=== PATIENT | female | born 1940 | race Caucasian/White ===

== ENCOUNTER 2016-09-19 11:49 | Inpatient (IN) ==
[2016-09-19] MEDS ORDERED: Ipratropium/Albuterol Neb 3 ML ONE (11:57)
[2016-09-19] MEDS ORDERED: 0.9 % Sodium Chloride 1,000 ML IVC ONE (12:13)
[2016-09-19] MEDS ORDERED: Levalbuterol Neb 1.25 MG/3 ML IH ONE (12:14)
--- NOTE | 2016-09-19 12:18 | Emergency Department Note ---
Disposition Clinical Impression: CAP (community acquired pneumonia) Disposition: Admitted As Inpatient Condition: Fair Referrals: Christi Karimi MD [Primary Care Provider] - SOB HPI - General Stated Complaint: difficulty breathing Source: patient Mode of arrival: ambulatory Limitations: no limitations Nursing Notes Reviewed: Yes Vital Signs Reviewed: Yes - History of Present Illness 75-year-old female presents to emergency department for evaluation of shortness of breath. Patient is a known history of COPD requiring constant oxygen at 1.5 L. Patient states that she just got over a cold and seemed to be doing well until this morning when she started having cold-like symptoms again of runny nose and coughing. Patient states she coughs but does not get anything up. She states chills but no fever. She denies any chest pain. There has been no associated vomiting. - Related Data Home Medications Medication Instructions Recorded Confirmed Albuterol Sulfate 2.5 mg IH Q4H 09/19/16 09/19/16 Budesonide/Formoterol 80/4.5 2 puff IH BID 09/19/16 09/19/16 [Symbicort 80/4.5] Diltiazem [Cardizem] 30 mg PO BID 09/19/16 09/19/16 Ferrous Sulfate [Iron] 325 mg PO BID 09/19/16 09/19/16 Fluticasone/Salmeterol [Advair 1 each IH BID 09/19/16 09/19/16 250-50 Diskus] Metformin [Glucophage] 1,000 mg PO BIDWM 09/19/16 09/19/16 Omeprazole 20 mg PO DAILY 09/19/16 09/19/16 Allergies Allergy/AdvReac Type Severity Reaction Status Date / Time No Known Allergies Allergy Verified 09/30/15 09:14 Review of Systems: Constitutional: [Negative for fever and chills.] HENT: [Negative for congestion.] Eyes: [Negative for discharge.] Respiratory: See history of present illness Cardiovascular: [Negative for chest pain.] Gastrointestinal: [Negative for nausea, vomiting, abdominal pain and diarrhea.] Endocrine: [Negative for excessive thirst,urination] Genitourinary: [Negative for dysuria and frequency.] Musculoskeletal: [Negative for myalgias and arthralgias.] Skin: [Negative for rash.] Neurological: [Negative for dizziness, localized weakness and headaches.] Psychiatric/Behavioral: [Negative for nervous/anxious.] All other systems reviewed and are negative. Past Medical History - Past Medical History Attestation: Yes The following information was validated with the patient. 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 . The patient appears nontoxic, and appears chronically ill. HENT: Head: Normocephalic and atraumatic. Right Ear: External ear normal. Left Ear: External ear normal. Nose: Nose normal. Mouth/Throat: Oropharynx is clear and mucous membranes show [good hydration.] No obvious drainage is seen Eyes: Conjunctivae and EOM are normal. Pupils are equal, round, and reactive to light. Right eye exhibits [no] discharge. Left eye exhibits [no] discharge. Neck: Trachea is midline, normal range of motion and [phonation normal]. Neck supple. Cardiovascular: [Regular rhythm], S1 normal, S2 normal, normal heart sounds and intact distal pulses. Exam reveals no gallop and no friction rub. No murmur heard. Pulmonary/Chest: Effort increased No stridor. Mild tachypnea. [No] respiratory distress. There are decreased breath sounds. There is very faint wheezes heard but no rhonchi or rales Abdominal: Soft. [Bowel sounds are normal]. There exhibits [no] distension and [no] mass. There is no hepatosplenomegaly. There is [no tenderness], [no] CVA tenderness. There is [no rigidity, no rebound, no guarding]. Musculoskeletal: Normal range of motion of uninvolved extremities. There exhibits [no edema]. [ ] Neurological: Patient is alert. Patient displays no atrophy and no tremor. No cranial nerve deficit and exhibits normal muscle tone. Coordination normal. Skin: Skin is warm and dry. No rash noted. No erythema. Psychiatric: Patient has a normal mood,affect, behavior, judgment, and thought content. Course Course Narrative: Patient was discussed with Dr. Karimi her primary care physician who sent the patient for admission. I wrote initial admitting orders for her convenience. She will assume further care upon the patient's arrival to the floor. - Reevaluation(s) Reevaluation #1: She was asked about her current CODE STATUS. She states that she would like to have everything done until the point it appears that she would have to go on life support. Vital Signs Temperature 100.3 F H 09/19/16 11:50 Pulse Rate 135 09/19/16 11:50 Respiratory Rate 24 09/19/16 11:50 Blood Pressure 113/57 09/19/16 11:50 O2 Sat by Pulse Oximetry 78 L 09/19/16 11:50 Temperature 100.3 F H 09/19/16 11:50 Pulse Rate 135 09/19/16 11:50 Respiratory Rate 24 09/19/16 11:50 Blood Pressure 113/57 09/19/16 11:50 O2 Sat by Pulse Oximetry 92 L 09/19/16 11:50 Oxygen Delivery Oxygen Delivery Room Air Shortness of Breath/Dyspnea - Lab Data Lab results reviewed: Yes I reviewed the patient's lab results. Result diagrams: 09/19/16 12:30 09/19/16 12:30 Lab Results 09/19/16 09/19/16 09/19/16 Range/Units 12:30 12:30 12:30 WBC 18.0 H (4.3-11.1) K/mcL RBC 3.68 L (3.82-4.97) M/mcL Hgb 10.6 L (11.5-15.4) g/dL Hct 34.0 L (35.3-44.9) % MCV 92.4 (83.0-100.0) fL MCH 28.8 (28.0-33.3) pg MCHC 31.2 L (31.6-35.5) g/dL RDW 13.2 (11.5-14.5) % Plt Count 353 (140-400) K/mcL MPV 10.1 (9.4-12.4) fL Immature Gran % 0.5 (0-4) % Seg Neutrophils % 90.2 % Lymphocytes % 2.8 % Monocytes % 6.4 % Eosinophils % 0.0 % Basophils % 0.1 % Neutrophils # 16.2 H (1.6-8.9) K/mcL Lymphocytes # 0.5 L (0.6-4.6) K/mcL Monocytes # 1.2 (0.0-1.3) K/mcL Eosinophils # 0.0 (0.0-0.6) K/mcL Basophils # 0.0 (0.0-0.2) K/mcL ABG pH (7.32-7.45) pH Units ABG pCO2 (35-45) mmHg ABG pO2 (85-104) mmHg ABG HCO3 (21-27) mEQ/L ABG Total CO2 (20-26) mEq/L ABG O2 Saturation (95-98) % ABG Base Excess (-2.0 to 3.0) mEq/L VBG Lactic Acid (0.5-2.2) mmol/L Inspired O2 % Sodium 137 (136-145) mEq/L Potassium 5.3 H (3.5-4.5) mEq/L Chloride 101 (98-109) mEq/L Carbon Dioxide 21 (19-29) mEq/L BUN 17 (7-20) mg/dL Creatinine 0.92 (0.57-1.11) mg/dL Est GFR ( Amer) > 60 (> 60) Est GFR (Non-Af Amer) 60 (> 60) BUN/Creatinine Ratio 18 (6-26) Glucose 124 H (70-99) mg/dL Calculated Osmolality 287 (280-300) Calcium 9.3 (8.6-10.8) mg/dL Total Bilirubin 0.3 (0.2-1.2) mg/dL Direct Bilirubin 0.1 (0.0-0.5) mg/dL Indirect Bilirubin 0.2 (0.0-1.2) mg/dL AST 18 (5-34) Units/L ALT 11 (0-55) Units/L Alkaline Phosphatase 84 (38-126) Units/L Troponin I (0-0.03) ng/mL B-Natriuretic Peptide 49 (0-100) pg/mL Serum Total Protein 7.5 (6.0-8.3) g/dL Albumin 3.7 (3.5-5.0) g/dL Globulin 3.8 H (2.4-3.5) g/dL Albumin/Globulin Ratio 1.0 L (1.1-2.2) 09/19/16 09/19/16 09/19/16 Range/Units 12:41 13:25 15:20 WBC (4.3-11.1) K/mcL RBC (3.82-4.97) M/mcL Hgb (11.5-15.4) g/dL Hct (35.3-44.9) % MCV (83.0-100.0) fL MCH (28.0-33.3) pg MCHC (31.6-35.5) g/dL RDW (11.5-14.5) % Plt Count (140-400) K/mcL MPV (9.4-12.4) fL Immature Gran % (0-4) % Seg Neutrophils % % Lymphocytes % % Monocytes % % Eosinophils % % Basophils % % Neutrophils # (1.6-8.9) K/mcL Lymphocytes # (0.6-4.6) K/mcL Monocytes # (0.0-1.3) K/mcL Eosinophils # (0.0-0.6) K/mcL Basophils # (0.0-0.2) K/mcL ABG pH 7.41 (7.32-7.45) pH Units ABG pCO2 33 L (35-45) mmHg ABG pO2 99 (85-104) mmHg ABG HCO3 21 (21-27) mEQ/L ABG Total CO2 23.0 (20-26) mEq/L ABG O2 Saturation 98 (95-98) % ABG Base Excess -3.0 L (-2.0 to 3.0) mEq/L VBG Lactic Acid 3.0 H (0.5-2.2) mmol/L Inspired O2 2.5 % Sodium (136-145) mEq/L Potassium (3.5-4.5) mEq/L Chloride (98-109) mEq/L Carbon Dioxide (19-29) mEq/L BUN (7-20) mg/dL Creatinine (0.57-1.11) mg/dL Est GFR ( Amer) (> 60) Est GFR (Non-Af Amer) (> 60) BUN/Creatinine Ratio (6-26) Glucose (70-99) mg/dL Calculated Osmolality (280-300) Calcium (8.6-10.8) mg/dL Total Bilirubin (0.2-1.2) mg/dL Direct Bilirubin (0.0-0.5) mg/dL Indirect Bilirubin (0.0-1.2) mg/dL AST (5-34) Units/L ALT (0-55) Units/L Alkaline Phosphatase (38-126) Units/L Troponin I 0.00 (0-0.03) ng/mL B-Natriuretic Peptide (0-100) pg/mL Serum Total Protein (6.0-8.3) g/dL Albumin (3.5-5.0) g/dL Globulin (2.4-3.5) g/dL Albumin/Globulin Ratio (1.1-2.2) - Radiology Data Radiology results reviewed: Yes I reviewed the patient's radiology results. I have contemporaneously read the radiology report from the radiologist which has the following findings: Chest x-ray IMPRESSION: Stable chest. Streaky bibasilar infiltrates, similar to the previous study. It is unclear whether this represents a recurrent pneumonia or a chronic finding. Otherwise no acute disease - EKG Data EKG attestation: Yes I reviewed and interpreted this EKG. EKG shows normal: Reports: sinus rhythm, axis, intervals, QRS complexes, ST-T waves Rate: Reports: tachycardia Rhythm: Reports: PVC's
[2016-09-19] MEDS ORDERED: Ipratropium/Albuterol Neb 3 ML IH ONE (12:20)
[2016-09-19 12:41] LABS: Basophils % 0.1 %; Hemoglobin 10.6 g/dL (11.5-15.4); Immature Granulocytes % 0.5 % (0-4); Lymphocytes # 0.5 K/mcL (0.6-4.6); Lymphocytes % 2.8 %; Mean Corpuscular HGB Conc 31.2 g/dL (31.6-35.5); Mean Corpuscular Hemoglobin 28.8 pg (28.0-33.3); Mean Corpuscular Volume 92.4 fL (83.0-100.0); Mean Platelet Volume 10.1 fL (9.4-12.4); Monocytes # 1.2 K/mcL (0.0-1.3); Monocytes % 6.4 %; Neutrophils # 16.2 K/mcL (1.6-8.9); Platelet Count 353 K/mcL (140-400); Red Blood Count 3.68 M/mcL (3.82-4.97); Red Cell Distribution Width 13.2 % (11.5-14.5); Segmented Neutrophils % 90.2 %
[2016-09-19 13:06] LABS: Alanine Aminotransferase 11 Units/L (0-55); Albumin 3.7 g/dL (3.5-5.0); Alkaline Phosphatase 84 Units/L (38-126); Aspartate Amino Transferase 18 Units/L (5-34); BUN/Creatinine Ratio 18 (6-26); Bilirubin,Direct 0.1 mg/dL (0.0-0.5); Bilirubin,Indirect 0.2 mg/dL (0.0-1.2); Bilirubin,Total 0.3 mg/dL (0.2-1.2); Blood Urea Nitrogen 17 mg/dL (7-20); Calcium 9.3 mg/dL (8.6-10.8); Carbon Dioxide 21 mEq/L (19-29); Chloride 101 mEq/L (98-109); Globulin 3.8 g/dL (2.4-3.5); Glucose 124 mg/dL (70-99); Osmolality,Calculated 287 (280-300); Potassium 5.3 mEq/L (3.5-4.5); Sodium 137 mEq/L (136-145); Total Protein 7.5 g/dL (6.0-8.3); eGFR For African Americans > 60 (> 60); eGFR For Non-African Americans 60 (> 60)
[2016-09-19 13:46] LABS: ABG PH 7.41 pH Units (7.32-7.45)
[2016-09-19 13:47] LABS: ABG HCO3 21 mEQ/L (21-27); ABG Oxygen Saturation 98 % (95-98); ABG PCO2 33 mmHg (35-45); ABG PO2 99 mmHg (85-104)
[2016-09-19 13:48] LABS: Blood Gas FiO2 2.5 %
[2016-09-19] MEDS ORDERED: CefTRIAXone 1,000 MG in D5% in Water (Mini-Bag+) 100 ML IVPB ONE ×3 (14:36→16:30)
[2016-09-19] MEDS ORDERED: Naloxone 0.4 MG/ML INJ IVP PRN (16:06)
[2016-09-19] MEDS ORDERED: Ondansetron 4 MG/2 ML VIAL IVP PRN (16:06)
[2016-09-19] MEDS ORDERED: 0.9 % Sodium Chloride w KCl 20 MEQ/1,000 ML MLS IVC SCH (16:06)
[2016-09-19] MEDS ORDERED: Acetaminophen 325 MG TABLET PO PRN (16:06)
[2016-09-19] MEDS ORDERED: CefTRIAXone 2,000 MG VIAL ONE (16:13)
[2016-09-19] MEDS ORDERED: 0.9 % Sodium Chloride 1,000 ML IVC SCH ×3 (18:30→19:54)
[2016-09-19] MEDS: Azithromycin 500 MG in D5% in Water 250 ML IVPB SCH (18:34)
[2016-09-19] MEDS ORDERED: Enoxaparin Weight Dosing SQ SCH (19:00)
[2016-09-19] MEDS ORDERED: 0.9 % Sodium Chloride 500 ML IVC ONE ×2 (19:38→19:54)
[2016-09-19] MEDS: Albuterol 2.5 MG/3 ML NEBULIZER IH SCH ×2 (21:02)
[2016-09-19] MEDS: *HR* Metformin 500 MG TABLET PO SCH ×2 (21:02→21:11)
[2016-09-19] MEDS: Budesonide/Formoterol 80/4.5 MDI IH SCH ×2 (21:03)
[2016-09-19] MEDS: Fluorometholone OPTH 5 ML BOTTLE BOTH EYES SCH (21:03)
[2016-09-19] MEDS: Cyclosporine [Restasis] 1 EACH OP SCH (21:03)
[2016-09-19] MEDS: Ipratropium/Albuterol Neb 3 ML IH SCH (21:59)
[2016-09-20] MEDS: Albuterol 2.5 MG/3 ML NEBULIZER IH SCH ×5 (00:27→08:34)
[2016-09-20] MEDS ORDERED: 0.9 % Sodium Chloride 500 ML IVC ONE ×4 (00:55→16:04)
[2016-09-20] MEDS: 0.9 % Sodium Chloride 1,000 ML IVC SCH ×4 (01:11→23:25)
[2016-09-20] MEDS: Ipratropium/Albuterol Neb 3 ML IH SCH ×4 (04:28→20:52)
[2016-09-20 05:24] LABS: Hematocrit 26.6 % (35.3-44.9); Hemoglobin 8.1 g/dL (11.5-15.4); Immature Granulocytes % 0.7 % (0-4); Lymphocytes # 0.3 K/mcL (0.6-4.6); Lymphocytes % 2.4 %; Mean Corpuscular HGB Conc 30.5 g/dL (31.6-35.5); Mean Corpuscular Hemoglobin 28.9 pg (28.0-33.3); Mean Platelet Volume 10.1 fL (9.4-12.4); Monocytes # 0.1 K/mcL (0.0-1.3); Monocytes % 1.1 %; Platelet Count 236 K/mcL (140-400); Red Cell Distribution Width 13.4 % (11.5-14.5); Segmented Neutrophils % 95.8 %
[2016-09-20 05:33] LABS: BUN/Creatinine Ratio 26 (6-26); Blood Urea Nitrogen 23 mg/dL (7-20); Calcium 7.9 mg/dL (8.6-10.8); Carbon Dioxide 20 mEq/L (19-29); Chloride 108 mEq/L (98-109); Glucose 245 mg/dL (70-99); Osmolality,Calculated 294 (280-300); Potassium 5.1 mEq/L (3.5-4.5); Sodium 136 mEq/L (136-145); eGFR For African Americans > 60 (> 60); eGFR For Non-African Americans > 60 (> 60)
[2016-09-20] MEDS: *HR* Enoxaparin 30 MG/0.3 ML SYRINGE SQ SCH (05:39)
[2016-09-20] MEDS ORDERED: *HR* Enoxaparin 30 MG/0.3 ML SYRINGE SQ SCH ×2 (07:00)
[2016-09-20] MEDS: *HR* Metformin 500 MG TABLET PO SCH ×2 (08:31→17:28)
[2016-09-20] MEDS: Cyclosporine [Restasis] 1 EACH OP SCH ×2 (08:32→22:23)
[2016-09-20] MEDS: Budesonide/Formoterol 80/4.5 MDI IH SCH ×4 (08:32→22:23)
[2016-09-20] MEDS: Fluorometholone OPTH 5 ML BOTTLE BOTH EYES SCH ×2 (08:33→22:23)
--- NOTE | 2016-09-20 08:37 | Internal Med History&Physical ---
Date of Encounter: 09/21/16 Time of Encounter: 08:37 Assessment and Plan (1) COPD exacerbation Current visit: Yes Status: Acute She is admitted for Rocephin and Zithromax DuoNeb's oxygen and Solu-Medrol. This morning she is feeling a little bit better. She will likely require at least a 3 day stay. She is DNR CC arrest (2) Hypotension Current visit: Yes Status: Acute She has received several IV fluid boluses and is running normal saline. I am not sure how much she takes her Cardizem at home we will hold the Cardizem today and see if that helps with the hypotension she is still getting IV fluid boluses. We will continue to watch her heart rate she has a history of sinus tachycardia for which she is taking the Cardizem. Qualifiers: Hypotension type: unspecified hypotension type Qualified Code(s): I95.9 - Hypotension, unspecified (3) CAP (community acquired pneumonia) Current visit: Yes Status: Acute Her chest x-ray shows possible infiltrate versus scarring she is on Rocephin and Zithromax will continue to follow she has been afebrile. (4) Diabetes Current visit: No Status: Acute Continue her home metformin. Qualifiers: Diabetes mellitus type: type 2 Diabetes mellitus complication status: with hyperglycemia Diabetes mellitus half-way insulin use: without half-way use Code(s): E11.9 - Type 2 diabetes mellitus without complications (5) Hyperkalemia Current visit: No Status: Acute We will follow. (6) Sinus tachycardia Current visit: Yes Status: Acute She has a history for this she has seen cardiology in the past for she has been placed on by mouth Cardizem. Her heart rate is usually around 115 at a baseline. I held last night's dose of Cardizem and this morning's dose because of her hypotension to see if that helps . I am not sure she takes it at home not (7) Anemia Current visit: Yes Status: Acute We will continue to follow she has often needed blood transfusions due to this continue her home iron she does not get a lot of iron in her diet. Qualifiers: Anemia type: iron deficiency Qualified Code(s): D50.8 - Other iron deficiency anemias Internal Medicine - H&P: HPI Chief complaint: sob History of present illness: Ms. Sanders is a 75 year old female Who presented to the emergency room after she was short of breath for several days. She was coughing some sputum no chest pain or palpitation she had been dizzy she had been tired she had not been eating. She had lost weight. She did not have a fever. She had some nausea but no emesis no vomiting. She came into the emergency room she was found to be tachycardic she was given IV fluids throughout the night she had some hypotension she was given multiple normal saline boluses. Her Cardizem was held due to the hypotension she does have a history of a tachycardia sinus tachycardia that she has in cardiology for in the past was put on the by mouth Cardizem. Sure how often she takes that at home. Concerned that some of the hypotension is due to taking the Cardizem. And definite dehydration. She was given duo nebs Rocephin and Zithromax IV fluids and oxygen. 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), other (bilateral salpingopherectomy 02/14, po tube 09/21) - Social History Smoking Status: Former smoker Smokeless Tobacco Status: No Alcohol use: none Drug use: none - Family History Mother History Unknown: Yes Hx Family Cancer: Yes (leukemia) Brother Hx Family Cardiac Disorders: Yes (cad) Hx Family Endocrine Disorder: Yes (diabetes) Sister Hx Family Cardiac Disorders: Yes (cad) Father Hx Family Cardiac Disorders: Yes (chf, htn,mi) Internal Medicine - H&P: Meds Albuterol Sulfate 2.5 mg IH Q4H 09/19/16 [History] Budesonide/Formoterol 80/4.5 [Symbicort 80/4.5] 2 puff IH BID 09/19/16 [History ] Cyclosporine [Restasis] 1 each OP BID 09/19/16 [History] Diltiazem [Cardizem] 30 mg PO BID 09/19/16 [History] Ferrous Sulfate [Iron] 325 mg PO BID 09/19/16 [History] Fluorometholone [Fml] 1 drop BOTH EYES BID 09/19/16 [History] Fluticasone/Salmeterol [Advair 250-50 Diskus] 1 each IH BID 09/19/16 [History] Latanoprost [Xalatan] 2.5 ml OP DAILY 09/19/16 [History] Metformin [Glucophage] 1,000 mg PO BIDWM 09/19/16 [History] Omeprazole 20 mg PO DAILY 09/19/16 [History] Allergies No Known Allergies Allergy (Verified 09/30/15 09:14) All Systems PM: A 10-system review of systems was performed and is negative for pertinent findings except as documented above in the HPI. - Constitutional Constitutional: anorexia (She only eats cheese its), fatigue, weakness ( Generalized), weight loss, no chills, no fever(s) - EENT Eyes: loss of vision (She has cataracts but that has not changed she was going to have them off.) Nose, mouth and throat: no nasal congestion, no nasal discharge, no sore throat - Cardiovascular Cardiovascular ROS IM: dyspnea, no chest pain, no palpitations - Respiratory Respiratory: cough, dyspnea, wheezing, chest congestion - Gastrointestinal Gastrointestinal: nausea, no abdominal pain, no constipation, no hematochezia, no loose stools, no melena, no vomiting - Genitourinary Genitourinary: no dysuria, no urinary incontinence - Integumentary Integumentary IM: no pruritus, no rash - Constitutional Vitals: Temp Pulse Resp BP Pulse Ox 98.4 F 115 16 80/47 97 09/20/16 07:27 09/20/16 07:27 09/20/16 07:27 09/20/16 07:27 09/20/16 07:27 General appearance: Present: A&O X 3, underweight, answers questions appropriately - Head Head exam: Present: atraumatic, normocephalic - Neck Neck exam general surgery: Present: supple, trachea midline - Respiratory Respiratory exam: Present: decreased breath sounds, prolonged expiratory phase, wheezes, tachypnea - Cardiovascular Cardiovascular exam: Present: +S1, +S2, tachycardia - GI/Abdominal GI/Abdominal exam: Present: normal bowel sounds, soft, no peritoneal signs. Absent: distended, guarding, mass, tenderness - Extremities Exam Extremities exam: Present: normal capillary refill, warm. Absent: pedal edema - Skin Skin exam: Present: dry, warm. Absent: rash Internal Med - H&P Results - Labs CBC & Chem 7: 09/20/16 18:45 09/20/16 18:45 Labs: Short CBC 09/20/16 Range/Units 04:50 WBC 10.4 (4.3-11.1) K/mcL Hgb 8.1 L D (11.5-15.4) g/dL Hct 26.6 L (35.3-44.9) % Plt Count 236 (140-400) K/mcL Neutrophils # 10.0 H (1.6-8.9) K/mcL BMP 09/20/16 04:50 Sodium 136 Potassium 5.1 H Chloride 108 Carbon Dioxide 20 BUN 23 H Creatinine 0.89 Glucose 245 H Calcium 7.9 L D
[2016-09-20 14:38] LABS: Hematocrit 28.8 % (35.3-44.9); Hemoglobin 8.7 g/dL (11.5-15.4); Immature Granulocytes % 1.1 % (0-4); Lymphocytes # 0.3 K/mcL (0.6-4.6); Lymphocytes % 2.1 %; Mean Corpuscular HGB Conc 30.2 g/dL (31.6-35.5); Mean Corpuscular Hemoglobin 28.7 pg (28.0-33.3); Mean Platelet Volume 9.9 fL (9.4-12.4); Monocytes # 0.1 K/mcL (0.0-1.3); Monocytes % 0.7 %; Neutrophils # 14.3 K/mcL (1.6-8.9); Platelet Count 279 K/mcL (140-400); Red Blood Count 3.03 M/mcL (3.82-4.97); Red Cell Distribution Width 13.7 % (11.5-14.5); Segmented Neutrophils % 96.1 %
[2016-09-20] MEDS: CefTRIAXone 1,000 MG in D5% in Water (Mini-Bag+) 100 ML IVPB SCH (16:07)
[2016-09-20] MEDS: Azithromycin 500 MG in D5% in Water 250 ML IVPB SCH (17:38)
[2016-09-20] MEDS: Albuterol 2.5 MG/3 ML NEBULIZER IH PRN ×2 (18:05→20:21)
[2016-09-20] MEDS ORDERED: 0.9 % Sodium Chloride 1,000 ML IVC ONE (18:31)
[2016-09-20 18:57] LABS: Basophils % 0.1 %; Hematocrit 28.2 % (35.3-44.9); Hemoglobin 8.6 g/dL (11.5-15.4); Immature Granulocytes % 0.8 % (0-4); Lymphocytes # 0.3 K/mcL (0.6-4.6); Lymphocytes % 1.5 %; Mean Corpuscular HGB Conc 30.5 g/dL (31.6-35.5); Mean Corpuscular Hemoglobin 29.5 pg (28.0-33.3); Mean Corpuscular Volume 96.6 fL (83.0-100.0); Monocytes # 0.1 K/mcL (0.0-1.3); Monocytes % 0.6 %; Neutrophils # 16.7 K/mcL (1.6-8.9); Platelet Count 291 K/mcL (140-400); Red Blood Count 2.92 M/mcL (3.82-4.97); Red Cell Distribution Width 13.8 % (11.5-14.5)
--- NOTE | 2016-09-20 19:00 | Event Note ---
Date of Encounter: 09/20/16 Time of Encounter: 18:58 She started having chest pain she got more short of breath she had diaphoretic she was nauseated. Her heart rate got up to 150 EKG showed possible A flutter. She was given a DuoNeb and increased on her oxygen without much success. We will give her IV Cardizem push. Discussed with her transfer to [place] she is amenable to that
[2016-09-20 19:08] LABS: BUN/Creatinine Ratio 23 (6-26); Blood Urea Nitrogen 21 mg/dL (7-20); Calcium 7.5 mg/dL (8.6-10.8); Carbon Dioxide 17 mEq/L (19-29); Chloride 112 mEq/L (98-109); Glucose 256 mg/dL (70-99); Osmolality,Calculated 294 (280-300); Potassium 4.5 mEq/L (3.5-4.5); Sodium 136 mEq/L (136-145); eGFR For African Americans > 60 (> 60); eGFR For Non-African Americans > 60 (> 60)
[2016-09-20] MEDS ORDERED: D5% in Water 100 ML ONE (19:37)
--- NOTE | 2016-09-20 19:40 | Electrocardiograph Report ---
[place] [id number] Test Date: 2016-09-19 Pat Name: Kiesha Sanders Department: 2001 Room: 112 Gender: F Supervisor [employer]: : 1940 Requested By: Betito Grimaldo Order Number: [id number] Reading MD: Gorge Champion DO Measurements Intervals [place] Rate: 123 P: 76 FL: 108 QRS: 97 QRSD: 70 T: 77 QT: 285 QTc: 358 Interpretive Statements SINUS TACHYCARDIA WITH OCCASIONAL VENTRICULAR PREMATURE COMPLEXES BORDERLINE RIGHT AXIS DEVIATION Electronically Signed On 09-20-2016 19:38:29 EST by Gorge Champion DO
[2016-09-20] MEDS ORDERED: *HR* Digoxin 0.5 MG/2 ML AMPUL IVP ONE (19:56)
[2016-09-20] MEDS ORDERED: Furosemide 20 MG/2 ML VIAL IVP ONE ×2 (20:27→20:34)
--- NOTE | 2016-09-20 20:48 | Event Note ---
Date of Encounter: 09/20/16 Time of Encounter: 20:[address] Hodges at [facility] he accepted her in transfer. he wanted her to have lasix 20mg iv, hold ivf,give her digoxin and stop the cardizem. orders given. she continues to have chest pain, be sob and uncomfortable
[2016-09-20 21:00] LABS: Thyroid Stimulating Hormone 0.651 mcIU/mL (0.350-4.840)
[2016-09-20] MEDS ORDERED: Latanoprost 2.5 ML BOTTLE BOTH EYES SCH (21:00)
--- NOTE | 2016-09-20 22:03 | Event Note ---
Date of Encounter: 09/20/16 Time of Encounter: 22:00 family is here daughters Tahira, brianna, Guadalupe, and son and brother Peterson. discussed whether to keep her here or transfer to [place]. I do not think she will survive the trip. Her oxygen will range from 68=99% on 100% nrb mask. She has calmed down with her family here. Family wants here to stay here and keep her comfortable. I think this is reasonable. discussed giving her Ativan if she becomes anxious again. last time she had it she slept fo r 2 days. discussed this could affect her breathing in a negative way and even make her stop breathing. They agree if she needs it to give it to her.
[2016-09-20] MEDS ORDERED: *HR* LORazepam 2 MG/ML VIAL IVP PRN (23:33)
[2016-09-21] MEDS: Ipratropium/Albuterol Neb 3 ML IH SCH ×3 (04:14→18:28)
[2016-09-21] MEDS: *HR* Enoxaparin 30 MG/0.3 ML SYRINGE SQ SCH (04:46)
[2016-09-21] MEDS: 0.9 % Sodium Chloride 1,000 ML IVC SCH ×5 (08:55→18:28)
[2016-09-21] MEDS: *HR* Metformin 500 MG TABLET PO SCH ×2 (08:57→18:29)
[2016-09-21] MEDS: Cyclosporine [Restasis] 1 EACH OP SCH (08:58)
[2016-09-21] MEDS: Budesonide/Formoterol 80/4.5 MDI IH SCH ×2 (08:58→08:59)
[2016-09-21] MEDS: Fluorometholone OPTH 5 ML BOTTLE BOTH EYES SCH (08:58)
--- NOTE | 2016-09-21 11:02 | Internal Med Progress Note ---
Date of Encounter: 09/21/16 Time of Encounter: 11:02 - Assessment and plan (1) COPD exacerbation Current Visit: Yes Status: Acute Assessment and plan: She is getting the DuoNeb's she received Solu-Medrol Lasix during the night it did not make much of a difference her breathing has become slow she has had periods of apnea. Family is at her bedside they realize that she is likely to some time within the next several days. The plan is to keep her comfortable here and she is resting comfortably in bed. DC the telemetry but still keep her attached just certain staff does not have to be so intrusive with the family. (2) Hypotension Current Visit: Yes Status: Acute Assessment and plan: Waxes and wanes it is back up to normal. She had several dips down into the 70s yesterday. she did receive iv fluids which have made a difference in her bp Qualifiers: Hypotension type: unspecified hypotension type Qualified Code(s): I95.9 - Hypotension, unspecified (3) CAP (community acquired pneumonia) Current Visit: Yes Status: Acute Assessment and plan: Rocephin and Zithromax and Medrol DuoNeb's percent nonrebreather. sHe is not likely to survive this episode. Family is aware of this. (4) Diabetes Current Visit: No Status: Acute Qualifiers: Diabetes mellitus type: type 2 Diabetes mellitus complication status: with hyperglycemia Diabetes mellitus penitentiary insulin use: without long term care pharmacist use Code(s): E11.9 - Type 2 diabetes mellitus without complications (5) Hyperkalemia Current Visit: No Status: Acute Assessment and plan: A hard stick we did not repeat labs this morning it was elevated yesterday. (6) Sinus tachycardia Current Visit: Yes Status: Acute Assessment and plan: Had episodes of a flutter she is in sinus rhythm now but is tachycardic. Not able to be alert enough to swallow her by mouth Cardizem. plan is for comfort care (7) Anemia Current Visit: Yes Status: Acute Qualifiers: Anemia type: iron deficiency Qualified Code(s): D50.8 - Other iron deficiency anemias - Subjective Interval history: She has been comfortable throughout the night but her respiratory rate has been slowing down and she has had some periods of apnea. Her heart rate has continued to be tachycardic 136 to the 150s she is in sinus rhythm now. Have another episode of a flutter up into the 150s during the night. She has been on 100% nonrebreather and satting anywhere from the 60s to the 100s. Her extremities have become mottled is currently unresponsive her family is at her bedside - Constitutional Vitals: Temp Pulse Resp BP Pulse Ox 97.3 F L 139 24 115/57 70 L 09/21/16 07:47 09/21/16 07:47 09/21/16 07:47 09/21/16 00:49 09/21/16 07:47 General appearance: Present: mild distress, underweight. Absent: answers questions appropriately - Head Head exam: Present: atraumatic, normocephalic - Neck Neck exam general surgery: Present: supple, trachea midline - Respiratory Respiratory exam: Present: decreased breath sounds, prolonged expiratory phase, wheezes - Cardiovascular Cardiovascular exam: Present: +S1, +S2, tachycardia - GI/Abdominal GI/Abdominal exam: Present: soft, no peritoneal signs. Absent: distended, tenderness - Extremities Exam Extremities exam: Present: mottling - Skin Skin exam: Present: cyanosis, mottled Internal Medicine: Result - Labs CBC & Chem 7: 09/20/16 18:45 09/20/16 18:45 Labs: Short CBC 09/20/16 09/20/16 Range/Units 14:24 18:45 WBC 14.9 H 17.2 H (4.3-11.1) K/mcL Hgb 8.7 L 8.6 L (11.5-15.4) g/dL Hct 28.8 L 28.2 L (35.3-44.9) % Plt Count 279 291 (140-400) K/mcL Neutrophils # 14.3 H 16.7 H (1.6-8.9) K/mcL BMP 09/20/16 18:45 Sodium 136 Potassium 4.5 Chloride 112 H Carbon Dioxide 17 L BUN 21 H Creatinine 0.90 Glucose 256 H Calcium 7.5 L Cardiac Enzymes 09/20/16 Range/Units 18:45 Troponin I 0.01 (0-0.03) ng/mL - ABG Interpretation ABG results: ABG ABG pH 7.41 pH Units (7.32-7.45) 09/19/16 13:25 ABG pCO2 33 mmHg (35-45) L 09/19/16 13:25 ABG pO2 99 mmHg (85-104) 09/19/16 13:25 ABG O2 Saturation 98 % (95-98) 09/19/16 13:25 Consult Discharge Plan - Plan Referrals: Christi Karimi MD [Primary Care Provider] -
[2016-09-21 14:12] VITALS: BP 119/62
[2016-09-21] MEDS: CefTRIAXone 1,000 MG in D5% in Water (Mini-Bag+) 100 ML IVPB SCH (18:29)
[2016-09-21] MEDS: Azithromycin 500 MG in D5% in Water 250 ML IVPB SCH (18:29)
--- NOTE | 2016-09-21 20:35 | Discharge Summary ---
Date of Encounter: 09/21/16 Time of Encounter: 20:33 - Discharge Diagnosis (1) COPD exacerbation Priority: Primary Status: Acute (2) Hypotension Priority: Secondary Status: Acute Qualifiers: Hypotension type: unspecified hypotension type Qualified Code(s): I95.9 - Hypotension, unspecified (3) CAP (community acquired pneumonia) Priority: Secondary Status: Acute (4) Diabetes Priority: Secondary Status: Acute Qualifiers: Diabetes mellitus type: type 2 Diabetes mellitus complication status: with hyperglycemia Diabetes mellitus alf insulin use: without alf use Code(s): E11.9 - Type 2 diabetes mellitus without complications (5) Hyperkalemia Priority: Secondary Status: Acute (6) Sinus tachycardia Priority: Secondary Status: Acute (7) Anemia Priority: Secondary Status: Acute Qualifiers: Anemia type: iron deficiency Qualified Code(s): D50.8 - Other iron deficiency anemias - Discharge Medications Home Medications: Albuterol Sulfate 2.5 mg IH Q4H 09/19/16 [History] Budesonide/Formoterol 80/4.5 [Symbicort 80/4.5] 2 puff IH BID 09/19/16 [History ] Cyclosporine [Restasis] 1 each OP BID 09/19/16 [History] Diltiazem [Cardizem] 30 mg PO BID 09/19/16 [History] Ferrous Sulfate [Iron] 325 mg PO BID 09/19/16 [History] Fluorometholone [Fml] 1 drop BOTH EYES BID 09/19/16 [History] Fluticasone/Salmeterol [Advair 250-50 Diskus] 1 each IH BID 09/19/16 [History] Latanoprost [Xalatan] 2.5 ml OP DAILY 09/19/16 [History] Metformin [Glucophage] 1,000 mg PO BIDWM 09/19/16 [History] Omeprazole 20 mg PO DAILY 09/19/16 [History] Allergies/Adverse Reactions: Allergies No Known Allergies Allergy (Verified 09/30/15 09:14) Date of admission: 09/21/16 16:12 Primary care physician: Christi Karimi, - Patient Status Disposition: - Discharge Instructions Follow Up With: Christi Karimi MD [Primary Care Provider] - Forms: ED Satisfaction Letter Interval History: She presented to the emergency room with shortness of breath coughing and wheezing and hypoxia. She was initially admitted here for COPD exacerbation and community-acquired pneumonia she was placed on Rocephin and Zithromax oxygen Solu-Medrol and duo nebs. She had hypotension for which she received IV fluid boluses and IV fluids continuous. She became tachycardic at baseline she has was tachycardic running 110 but she did go up to 150 EKG was done that showed a flutter she had been holding her Cardizem due to the hypotension. Her blood pressure was improved she was given Cardizem push with only 20 degree difference in her heart rate. Cardizem drip was started. Spoke with the hospitalist about transfer to a [facility] for the tachycardia A. fib with RVR hypotension. He recommended digoxin that did not do much for her heart rate she was still short of breath tachycardic with chest pain. Discussed transferring her to [facility] and he did not think she would make the trip. We kept her here for comfort care. Eventually she became asystolic and no respiratory rate. She was pronounced by the ER physician at 1855. Her family was all there with her and she . Hospital course: Ms. Sanders is a 75 year old female - Time Spent with Patient Total time spent providing and/or coordinating discharge services: - Constitutional Vitals: Temp Pulse Resp BP Pulse Ox 97.3 F L 96 24 119/62 70 L 09/21/16 07:47 09/21/16 18:00 09/21/16 07:47 09/21/16 07:05 09/21/16 07:47 General appearance: Present: mild distress, underweight. Absent: answers questions appropriately
== END 2016-09-21 21:50 | disposition expired | DRG 190 ==
LOC: EMEROOGRE 11:49 → INPGRE 11:49
PROVIDERS: ADMIT Family Medicine; ATTEND Family Medicine